=== PATIENT | female | born 1985 | race African-American/Black ===

== ENCOUNTER → 2016-08-09 | Outpatient (CLI) | payer BC ==
[2016-08-09 10:18] LABS: BARBITURATES NEG (NEG); BENZODIAZEPINES NEG (NEG); CANNABINOIDS NEG (NEG); COCAINE NEG (NEG); METHADONE NEG (NEG); OPIATES NEG (NEG); PHENCYCLIDINE NEG (NEG)
[2016-08-09 10:35] LABS: ALBUMIN/GLOBULIN RATIO 0.9 (1.0-1.7); CALCIUM 8.8 mg/dL (8.5-10.1); CREATININE 0.9 mg/dL (0.6-1.0); GFR 87.8; TOTAL BILIRUBIN 0.7 mg/dL (0.2-1.0); TOTAL PROTEIN 8.3 g/dL (6.4-8.2)
[2016-08-09 10:46] LABS: FREE T4 0.94 ng/dL (0.76-1.46)
--- NOTE | 2016-08-09 11:10 | EKG ---
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
== END | disposition home or self-care (01) ==
LOC: LAB 09:14
PROVIDERS: ATTEND Psychiatry & Neurology Neurology
DX: R25.1 Tremor, unspecified (principal); R26.81 Unsteadiness on feet
CPT/HCPCS: 36415; 80053; 84439; 84443; 85651; 93005; G0481

== ENCOUNTER → 2016-08-12 | Outpatient (CLI) | payer BC ==
[~2016-08-12] MED LIST: GADOBUTROL 7.5 MMOL/7.5 ML VIAL IV ONE
--- NOTE | 2016-08-12 10:45 | RAD ---
BRAIN WO/W CONTRAST Indication: BILATERAL HAND TREMORS X 5 YEARS, ATAXIA, UNSTEADY GAIT, NO SX HX, NO PRIORS, 7.5ML GADAVIST Reason: ATAXIA, GAIT INSTABILITY / Spl. Instructions: / History: COMPARISON: None TECHNIQUE: Axial diffusion weighted imaging was obtained. Additional sagittal T1, axial T1, axial FLAIR, and axial T2 weighted imaging of the brain was also performed. Postcontrast T1 weighted imaging was also performed after intravenous administration of gadolinium based contrast. FINDINGS: No abnormal signal within the brain parenchyma. No abnormal intracranial enhancement. No evidence of acute intracranial hemorrhage. No restricted diffusion to indicate acute infarct. No extra-axial fluid collections. No midline shift or mass effect. Ventricular size is appropriate. Midline structures have a normal anatomic configuration. Pituitary gland and infundibulum are unremarkable. Basal cisterns are patent. Arterial flow voids at the skull base and major dural venous sinuses are maintained. Globes and orbits are unremarkable. Paranasal sinuses and mastoid air cells are clear. IMPRESSION: No acute intracranial abnormality. No abnormal enhancement or mass. Electronically signed by: Trever Gandhi (August 12, 2016 10:44:16)
== END | disposition home or self-care (01) ==
LOC: MRI 08:50 → EDUNIT# 09:00
PROVIDERS: ATTEND Psychiatry & Neurology Neurology
DX: R27.0 Ataxia, unspecified (principal)
CPT/HCPCS: 70553; A9585

== ENCOUNTER → 2016-09-19 | Outpatient (CLI) | payer BC ==
[2016-09-19 17:13] LABS: POTASSIUM 3.7 mmol/L (3.5-5.1)
[2016-09-20 03:21] LABS: THYROXINE 8.9 ug/dL (4.5-12.0)
== END | disposition home or self-care (01) ==
LOC: LAB 16:06
PROVIDERS: ATTEND Psychiatry & Neurology Neurology
DX: R25.1 Tremor, unspecified (principal)
CPT/HCPCS: 36415; 80051; 84436; 84481; 86141

== ENCOUNTER → 2016-12-12 | Outpatient (CLI) | payer BC ==
--- NOTE | 2016-12-12 16:16 | RAD ---
Indication generalized weakness. Evaluate for asthma. Frontal and lateral views of the chest were obtained. Exposure factors are not optimal particularly on the PA image. The heart and pulmonary vessels appear normal. The lungs are clear of acute infiltrates. Significant pleural fluid is not present. There is no pneumothorax. The visualized bony structures appear grossly intact. IMPRESSION: No acute or significant finding apparent in the chest
[2016-12-13 18:11] LABS: HIV ANTIBODY Non Reactive (Non Reactive)
== END | disposition home or self-care (01) ==
LOC: RAD 15:04
PROVIDERS: ATTEND Psychiatry & Neurology Neurology
DX: J45.909 Unspecified asthma, uncomplicated (principal); R53.1 Weakness
CPT/HCPCS: 71020; 82550; 82607; 85651; 86701; 86702; 86703; 87535